=== PATIENT | male | born 1970 ===

== ENCOUNTER 2020-01-18 18:08 | Emergency (ER) | payer OTHER ==
[~2020-01-18] VITALS: Ht 170.2 cm; Wt 75.0 kg
[2020-01-18 18:34] VITALS: BP 146/82
== END 2020-01-18 18:39 | disposition home or self-care (01) ==
LOC: ER 18:09
DX: J06.9 Acute upper respiratory infection, unspecified (principal)
CPT/HCPCS: 99281